=== PATIENT | male | born 1975 | race Caucasian/White ===

== ENCOUNTER 2020-01-03 16:12 | Inpatient (IN) ==
[2020-01-03] MEDS ORDERED: Naloxone 0.4 MG/ML INJ IVP PRN (19:25)
[2020-01-03] MEDS ORDERED: Ondansetron 4 MG/2 ML VIAL IVP PRN (19:25)
[2020-01-03 20:23] LABS: Basophils % 0.2 %; Eosinophils % 0.3 %; Hematocrit 46.1 % (37.5-50.1); Immature Granulocytes % 0.5 % (0-4); Lymphocytes # 0.9 K/mcL (0.6-4.6); Mean Corpuscular HGB Conc 32.5 g/dL (31.6-35.5); Mean Corpuscular Hemoglobin 28.9 pg (28.0-33.3); Mean Corpuscular Volume 88.8 fL (83.0-100.0); Mean Platelet Volume 9.9 fL (9.4-12.4); Monocytes # 1.2 K/mcL (0.0-1.3); Neutrophils # 12.3 K/mcL (1.6-8.9); Platelet Count 331 K/mcL (140-400); Red Blood Count 5.19 M/mcL (4.19-5.50); Red Cell Distribution Width 13.2 % (11.5-14.5); White Blood Count 14.4 K/mcL (4.3-11.1)
[2020-01-03 21:40] LABS: Alanine Aminotransferase 21 Units/L (7-52); Albumin 4.1 g/dL (3.5-5.7); Albumin/Globulin Ratio 1.4 (1.1-2.2); Alkaline Phosphatase 98 Units/L (34-104); Aspartate Amino Transferase 26 Units/L (13-39); BUN/Creatinine Ratio 13 (6-26); Bilirubin,Total 1.1 mg/dL (0.3-1.0); Blood Urea Nitrogen 14 mg/dL (6-20); Calcium 8.7 mg/dL (8.6-10.3); Carbon Dioxide 12 mEq/L (23-29); Chloride 108 mEq/L (98-107); Chol/HDL Ratio 4.9 (0-4.9); Cholesterol 136 mg/dL (< 200); Globulin 2.9 g/dL (2.4-3.5); Glucose 119 mg/dL (70-105); HDL Cholesterol 28 mg/dL (40-59); LDL Cholesterol,Calculated 90 mg/dL (< 100); Osmolality,Calculated 284 (280-300); Potassium 4.8 mEq/L (3.5-5.1); Sodium 136 mEq/L (136-145); Triglycerides 91 mg/dL (< 150); Troponin I 0.07 ng/mL (< 0.04); eGFR For African Americans > 60 (> 60); eGFR For Non-African Americans > 60 (> 60)
[2020-01-03 22:20] LABS: Adenovirus Not Detected (Not Detect); Bordetella Pertussis Not Detected (Not Detect); Chlamydophila pneumoniae Not Detected (Not Detect); Coronavirus 229E Not Detected (Not Detect); Coronavirus HKU1 Not Detected (Not Detect); Coronavirus NL63 Not Detected (Not Detect); Coronavirus OC43 Not Detected (Not Detect); Human Metapneumovirus Not Detected (Not Detect); Human Rhinovirus/Enterovirus Not Detected (Not Detect); Influenza A Subtype 2009 H1 Not Detected (Not Detect); Influenza B Not Detected (Not Detect); Mycoplasma pneumoniae Not Detected (Not Detect); Parainfluenza Virus 1 Not Detected (Not Detect); Parainfluenza Virus 2 Not Detected (Not Detect); Parainfluenza Virus 3 Not Detected (Not Detect); Parainfluenza Virus 4 Not Detected (Not Detect); Respiratory Syncytial Virus Not Detected (Not Detect); SARS-CoV-2 Not Detected (Not Detect)
[2020-01-04] MEDS ORDERED: *HR* Heparin 5,000 UNIT/ML VIAL IVP PRN (00:20)
[2020-01-04 00:57] LABS: INR 1.4; Prothrombin Time 15.5 Seconds (9.4-12.1)
[2020-01-04 00:59] LABS: Activated Partial Thrombo Time 39.2 Seconds (26.0-36.0)
[2020-01-04] MEDS ORDERED: Isovue-370 500 ML BOTTLE IVP ONE (01:07)
[2020-01-04] MEDS: DilTIAZem 50 MG/50 ML IV.SOLN IVC SCH ×3 (02:25→09:00)
[2020-01-04] MEDS: Heparin 25,000UNIT/250ML 1/2NS 25,000 UNIT/250 ML IV.SOLN IVC SCH ×2 (02:27→17:11)
[2020-01-04] MEDS ORDERED: Furosemide 20 MG/2 ML VIAL IVP ONE (03:20)
[2020-01-04 03:30] LABS: Bilirubin,Urine Negative (Negative); Blood,Urine Negative (Negative); Clarity,Urine Clear (Clear); Color,Urine Yellow (Yellow); Glucose,Urine (UA) Normal (Normal); Ketones,Urine 20 mg/dL (Negative); Leukocyte Esterase,Urine Negative (Negative); Nitrite,Urine Negative (Negative); Protein,Urine Trace mg/dL (Neg-Trace); Specific Gravity,Urine > 1.030 (1.010-1.025)
[2020-01-04] MEDS ORDERED: *HR* Metoprolol 5 MG/5 ML VIAL IVP PRN (04:29)
[2020-01-04] MEDS ORDERED: Perflutren Lipid Microsphere 1.3 ML in 0.9 % Sodium Chloride 8.7 ML IVP PRN (04:31)
[2020-01-04 06:20] LABS: Basophils % 0.2 %; Eosinophils # 0.1 K/mcL (0.0-0.6); Eosinophils % 0.9 %; Hematocrit 47.2 % (37.5-50.1); Hemoglobin 15.6 g/dL (12.9-16.9); Immature Granulocytes % 0.5 % (0-4); Lymphocytes % 8.2 %; Mean Corpuscular HGB Conc 33.1 g/dL (31.6-35.5); Mean Corpuscular Hemoglobin 28.7 pg (28.0-33.3); Mean Corpuscular Volume 86.9 fL (83.0-100.0); Mean Platelet Volume 9.7 fL (9.4-12.4); Monocytes # 1.3 K/mcL (0.0-1.3); Monocytes % 10.5 %; Neutrophils # 9.7 K/mcL (1.6-8.9); Platelet Count 326 K/mcL (140-400); Red Blood Count 5.43 M/mcL (4.19-5.50); Red Cell Distribution Width 13.3 % (11.5-14.5); Segmented Neutrophils % 79.7 %; White Blood Count 12.2 K/mcL (4.3-11.1)
[2020-01-04 06:44] LABS: BUN/Creatinine Ratio 13 (6-26); Blood Urea Nitrogen 14 mg/dL (6-20); Calcium 9.3 mg/dL (8.6-10.3); Carbon Dioxide 23 mEq/L (23-29); Chloride 104 mEq/L (98-107); Glucose 123 mg/dL (70-105); Osmolality,Calculated 288 (280-300); Potassium 3.7 mEq/L (3.5-5.1); Sodium 138 mEq/L (136-145); eGFR For African Americans > 60 (> 60); eGFR For Non-African Americans > 60 (> 60)
[2020-01-04] MEDS: Metoprolol XL (24 HR) Succ 50 MG TAB.ER.24H PO SCH ×2 (08:57→21:19)
[2020-01-04] MEDS ORDERED: DilTIAZem CD (24hr) 120 MG CAP.ER.24H PO SCH (09:00)
[2020-01-04] MEDS ORDERED: *HR* Metoprolol 5 MG/5 ML VIAL IVP ONE (09:03)
[2020-01-04] MEDS ORDERED: Amiodarone Premix 150 MG/100 ML BAG IVPB ONE ×2 (09:38→12:41)
[2020-01-04] MEDS: *HR* Heparin 5,000 UNIT/ML VIAL IVP PRN ×2 (09:40→17:13)
[2020-01-04] MEDS ORDERED: Amiodarone Premix 360 MG/200 ML BAG IVC ONE (10:00)
[2020-01-04 10:39] LABS: Thyroid Stimulating Hormone 2.396 mcIU/mL (0.340-5.600)
[2020-01-04] MEDS: Aspirin Enteric Coated 81 MG Tablet PO SCH (10:41)
[2020-01-04] MEDS ORDERED: *HR* FentaNYL (PF) 250 MCG/5 ML VIAL ONE (15:05)
[2020-01-04] MEDS ORDERED: *HR* Midazolam HCl 5 MG/5 ML VIAL IVP ONE (15:05)
[2020-01-04] MEDS ORDERED: 0.9 % Sodium Chloride 1,000 ML ONE (15:05)
[2020-01-04] MEDS: Amiodarone Premix 360 MG/200 ML BAG IVC SCH (17:18)
[2020-01-04 18:01] LABS: Hepatitis B Surface Antigen Nonreactive (Nonreactive)
[2020-01-04 18:31] LABS: Hepatitis C Virus Antibody Nonreactive (Nonreactive)
[2020-01-04 18:32] LABS: HIV-1&2 Antibody & p24 Ag Nonreactive (Nonreactive)
[2020-01-04 18:34] LABS: Hepatitis B Core IgM Nonreactive (Nonreactive)
[2020-01-04 18:35] LABS: Hepatitis A Antibody IgM Nonreactive (Nonreactive)
[2020-01-04] MEDS: Furosemide 20 MG/2 ML VIAL IVP SCH (21:19)
[2020-01-05 01:35] LABS: Basophils % 0.3 %; Eosinophils % 1.7 %; Hematocrit 43.5 % (37.5-50.1); Hemoglobin 14.8 g/dL (12.9-16.9); Immature Granulocytes % 0.5 % (0-4); Lymphocytes % 5.8 %; Mean Corpuscular Volume 88.2 fL (83.0-100.0); Mean Platelet Volume 10.3 fL (9.4-12.4); Monocytes % 8.9 %; Platelet Count 317 K/mcL (140-400); Red Blood Count 4.93 M/mcL (4.19-5.50); Red Cell Distribution Width 13.4 % (11.5-14.5); Segmented Neutrophils % 82.8 %; White Blood Count 11.6 K/mcL (4.3-11.1)
[2020-01-05 01:36] LABS: Eosinophils # 0.2 K/mcL (0.0-0.6); Lymphocytes # 0.7 K/mcL (0.6-4.6); Neutrophils # 9.6 K/mcL (1.6-8.9)
[2020-01-05 01:59] LABS: BUN/Creatinine Ratio 16 (6-26); Blood Urea Nitrogen 17 mg/dL (6-20); Carbon Dioxide 20 mEq/L (23-29); Chloride 104 mEq/L (98-107); Glucose 105 mg/dL (70-105); Magnesium 1.9 mg/dL (1.6-2.6); Osmolality,Calculated 284 (280-300); Phosphorous 2.1 mg/dL (2.7-4.5); Potassium 3.8 mEq/L (3.5-5.1); Sodium 136 mEq/L (136-145); eGFR For African Americans > 60 (> 60); eGFR For Non-African Americans > 60 (> 60)
[2020-01-05] MEDS: Amiodarone Premix 360 MG/200 ML BAG IVC SCH ×2 (06:30→18:49)
[2020-01-05] MEDS: Heparin 25,000UNIT/250ML 1/2NS 25,000 UNIT/250 ML IV.SOLN IVC SCH (08:40)
[2020-01-05] MEDS: Furosemide 20 MG/2 ML VIAL IVP SCH ×2 (09:04→16:38)
[2020-01-05] MEDS: Aspirin Enteric Coated 81 MG Tablet PO SCH (09:05)
[2020-01-05] MEDS: Metoprolol XL (24 HR) Succ 50 MG TAB.ER.24H PO SCH ×2 (09:05→21:07)
[2020-01-05] MEDS ORDERED: 0.9 % Sodium Chloride 2,000 ML ONE (12:12)
[2020-01-05] MEDS ORDERED: Nitroglycerin 1,000 MCG/10 ML VIAL IV ONE (12:13)
[2020-01-05] MEDS ORDERED: ISOVUE-370 200 ML INFUS..BTL ONE (12:13)
[2020-01-05] MEDS ORDERED: Heparin 1,000 UNITS/500 mL 500 ML ONE (12:13)
[2020-01-05] MEDS ORDERED: *HR* Heparin 10,000 UNIT/10 ML VIAL ONE (12:13)
[2020-01-05] MEDS ORDERED: *HR* Midazolam HCl 2 MG/2 ML VIAL ONE (14:25)
[2020-01-05] MEDS ORDERED: *HR* FentaNYL (PF) 100 MCG/2 ML VIAL ONE (14:25)
[2020-01-06 05:45] LABS: Basophils % 0.3 %; Eosinophils # 0.1 K/mcL (0.0-0.6); Eosinophils % 0.9 %; Hematocrit 41.8 % (37.5-50.1); Hemoglobin 13.6 g/dL (12.9-16.9); Immature Granulocytes % 0.3 % (0-4); Lymphocytes # 0.8 K/mcL (0.6-4.6); Lymphocytes % 7.3 %; Mean Corpuscular HGB Conc 32.5 g/dL (31.6-35.5); Mean Corpuscular Hemoglobin 28.7 pg (28.0-33.3); Mean Corpuscular Volume 88.2 fL (83.0-100.0); Mean Platelet Volume 9.8 fL (9.4-12.4); Monocytes # 1.3 K/mcL (0.0-1.3); Monocytes % 11.5 %; Neutrophils # 9.1 K/mcL (1.6-8.9); Platelet Count 299 K/mcL (140-400); Red Blood Count 4.74 M/mcL (4.19-5.50); Red Cell Distribution Width 13.4 % (11.5-14.5); Segmented Neutrophils % 79.7 %; White Blood Count 11.4 K/mcL (4.3-11.1)
[2020-01-06 06:04] LABS: BUN/Creatinine Ratio 18 (6-26); Blood Urea Nitrogen 20 mg/dL (6-20); Calcium 9.1 mg/dL (8.6-10.3); Carbon Dioxide 22 mEq/L (23-29); Chloride 104 mEq/L (98-107); Glucose 116 mg/dL (70-105); Magnesium 2.1 mg/dL (1.6-2.6); Osmolality,Calculated 282 (280-300); Phosphorous 3.2 mg/dL (2.7-4.5); Sodium 134 mEq/L (136-145); eGFR For African Americans > 60 (> 60); eGFR For Non-African Americans > 60 (> 60)
[2020-01-06] MEDS: Aspirin Enteric Coated 81 MG Tablet PO SCH (09:24)
[2020-01-06] MEDS: Metoprolol XL (24 HR) Succ 50 MG TAB.ER.24H PO SCH (09:24)
[2020-01-06] MEDS: Furosemide 20 MG/2 ML VIAL IVP SCH (09:25)
[2020-01-06] MEDS: Amiodarone Premix 360 MG/200 ML BAG IVC SCH (09:25)
[2020-01-06 11:38] VITALS: BP 120/85
[2020-01-06 14:42] LABS: Angiotensin Converting Enzyme 45 U/L (9-67)
[2020-01-07 09:57] LABS: ANA IgG by ELISA NONE DETECTED (None Detected)
[2020-01-08 11:20] LABS: Serine Protease-3 Antibody 2 AU/mL (0-19)
== END 2020-01-06 11:57 | disposition other institution (70) | DRG 190 ==
LOC: CDU → 2NNU 23:00
PROVIDERS: ADMIT Pharmacist; ATTEND Student in an Organized Health Care Education/Training Program